=== PATIENT | male | born 1955 | race Caucasian/White ===

== ENCOUNTER 2023-03-30 07:30 | Day surgery (SDC) | payer OTHER ==
[2023-03-24 16:42] VITALS: BP 152/81
[~2023-03-30] VITALS: Ht 182.9 cm; Wt 113.6 kg
[~2023-03-30 07:30] MED LIST: ACYCLOVIR400 MG PO; ANASTROZOLE1 MG PO; CENTRUM SILVER1 EAC4 PO; CHROMIUM PICO400 MCG; DAILY MULTIPLE1 EACH PO; DEPLIN-ALGAL O1 EAC1 PO; DEPO-TESTO100 MG/1 M IM; DEXAMETHASONE4 MG PO; DHEA25 MG PO; FISH OIL 1,0001 EAC6 PO; IODINE STRONG100 ML PO; LORAZEPAM1 MG PO; LUNESTA3 MG PO; MAGNESIUM CITR100 GM; METFORMIN HCL500 M3 PO; MOLYBDENUM MISC; NORCO 7.5-3251 EACH PO; OXYCODON-ACETA1 EAC2 PO; SUPER B COMPLE150 MG PO; TART CHERRY E1000 MG PO; TURMERIC 450-51 EACH PO; VITAMIN A10000 UNIT PO; VITAMIN C1000 MG PO; VITAMIN D32000 UNIT PO; VITAMIN E400 UNIT PO; ZINC50 M1 PO; ZITHROMAX250 MG PO; ZOFRAN8 MG PO; [UNRECOGNIZED DRUG - OTHER] PO
[2023-03-30 07:59] VITALS: BP 146/82
[2023-03-30] MEDS ORDERED: PERCOCET 7.5-31 EACH PO (10:19)
[2023-03-30] MEDS ORDERED: TYLENOL EXTRA500 MG PO (10:20)
[2023-03-30] MEDS ORDERED: MOTRIN IB200 MG PO (10:20)
[2023-03-30 10:36] VITALS: BP 141/72
[2023-03-30 11:40] VITALS: BP 174/90
[2023-03-30 11:54] VITALS: BP 167/93
[2023-03-30 12:00] VITALS: BP 162/81
[2023-03-30 13:00] VITALS: BP 153/78
--- NOTE | 2023-03-30 14:14 | OR ---
[facility] [address] [place], [place] [address] Signed DATE OF OPERATION: 03/30/2023 SURGEON: Braxton Montiel MD PREOPERATIVE DIAGNOSIS: Incarcerated umbilical hernia. POSTOPERATIVE DIAGNOSES: Incarcerated umbilical hernia, fascial defect less than 2 cm, incarcerated properitoneal fat. PROCEDURES: 1. Excision of incarcerated properitoneal fat. 2. Repair of incarcerated umbilical hernia, fascial defect less than 2 cm without mesh. ANESTHESIA: General endotracheal, Caio Serafin, RAILROAD DETECTIVE and local 10 mL of 0.25% Marcaine with epinephrine. INDICATION: This 67-year-old white man is a patient of Dr. Pranav Raya as well as Dr. Still in [place]. He is noted to have a nonreducible hernia at the umbilicus. It has been present for a number of years, but only in recent times has become more uncomfortable and now is not reducible. The patient is known to me from the past having had a Port-A-Cath placement in 2019 for a mantle cell lymphoma. He has also undergone right orchiectomy in 2010 for malignancy. The patient has no evidence of disease currently of testicular carcinoma or lymphoma. He is here to undergo repair of incarcerated increasingly symptomatic umbilical hernia. The risk of bleeding, infection, recurrence and so forth were reviewed with him. He understands and wished to proceed. FINDINGS: Densely and incarcerated properitoneal fat was noted. It was chronically inflamed and firm and fibrous. It was ultimately excised. The fascial defect was certainly less than 2 cm. Closure primarily was undertaken as a primary repair mode as the fascia was wilson and strong. Mesh was not implanted. DESCRIPTION OF PROCEDURE: The patient was brought to the operating room, given a general endotracheal anesthetic. Preoperative antibiotic Ancef was given. Sequential compression device stockings were Electronically Signed By: BRAXTON MONTIEL MD 03/30/23 1414 PATIENT NAME: NAZARIO CUMMINS OPERATIVE REPORT DATE OF : 55 REPORT #: [id number] PHYSICIAN: BRAXTON MONTIEL MD PCP: MALIK STILL DO REPORT IS CONFIDENTIAL AND NOT TO BE RELEASED WITHOUT AUTHORIZATION [facility] [address] [place], [place] [address] Signed used and heparin subcutaneously administered. Palpation at the umbilicus even after relaxation showed no sign of reduction of the umbilical hernia. The abdomen was prepared with a chlorhexidine solution and draped sterilely. A curvilinear incision was made in the umbilical fold on the left side. Dissection carried through the dermis with electrocautery. Using blunt and electrocautery dissection, the incarcerated viscus was freed from the surrounding subcutaneous space. The umbilical skin over the hernia was freed similarly. The firm mass appeared not to be a hollow viscus but rather incarcerated properitoneal fat. It was not able to be reduced and therefore was excised completely. This included the hernia sac and the fatty tissue. The resulting defect was less than 2 cm. The fascia was wilson and strong. Implantation of mesh was deemed unlikely and probably . Therefore, primary repair of the defect was undertaken with interrupted 0 Prolene suture in a vertical mattress configuration. 10 mL of 0.25% Marcaine with epinephrine was injected locally. The wound was closed in layers with interrupted 2-0 Vicryl and a running subcuticular and 3-0 Vicryl for the skin. Steri-Strips were applied as was an Acticoat dressing. The patient tolerated the procedure well, was ultimately extubated and transferred to recovery room in good condition having suffered no complications. Sponge, needle, and instrument counts were reported as correct x3. MD VIGNESH Jordan/ALBINL /[id number] cc: DO Pranav Yoo MD Copies: MALIK STILL ROBERT C MD ~ Electronically Signed By: BRAXTON MONTIEL MD 03/30/23 1414 PATIENT NAME: NAZARIO CUMMINS OPERATIVE REPORT DATE OF : 55 REPORT #: [id number] PHYSICIAN: BRAXTON MONTIEL MD PCP: MALIK STILL DO REPORT IS CONFIDENTIAL AND NOT TO BE RELEASED WITHOUT AUTHORIZATION
--- NOTE | 2023-04-02 16:42 | PATH ---
[facility] [address] [place], [place] [address] Signed SPECIMEN(S): A PROPERITONEAL FAT SPECIMEN SOURCE: A. PROPERITONEAL FAT CLINICAL HISTORY: Properitoneal fat. Irreducible umbilical hernia. 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 - Focal fat necrosis. JR:theo MICROSCOPIC EXAMINATION: Histologic sections of all submitted blocks are examined by light microscopy. These findings, together with the gross examination, support the pathologic diagnosis. GROSS DESCRIPTION: The specimen, labeled and designated "[place], peritoneal fat," is received in formalin and consists of pink-scott, soft, smooth tissue fragment that measure 3.3 x 2.2 x 1.6 cm. The specimen weight 6 g. Specimen is inked. Sectioning through the specimen reveal regular adipose tissue. Hydropress Operator sections are submitted in (A1). JS (under the direct supervision of a pathologist) The Gross Description was prepared using a voice recognition system. The report was reviewed for accuracy; however, sound-alike word errors, addition and/or deletions may occur. If there is any question about this report, please contact Client Services. PERFORMING LABORATORY: Technical component was performed by [facility], [address] [place] [id number] (CLIA# [id number]). Professional interpretation was performed by [facility], [address] [place] [id number] (CLIA#: [id number]). Diagnostician: Jose Ruvalcaba MD Pathologist Electronically Signed 04/02/2023 PATIENT NAME: NAZARIO HOUSTON PATHOLOGY DATE OF : 55 REPORT #: [id number] PHYSICIAN: KEILA PATHOLOGY PCP: MALIK GROVE DO REPORT IS CONFIDENTIAL AND NOT TO BE RELEASED WITHOUT AUTHORIZATION [address] [address] Signed Copies: ~ PATIENT NAME: NAZARIO HOUSTON PATHOLOGY DATE OF : 55 REPORT #: [id number] PHYSICIAN: KEILA PATHOLOGY PCP: MALIK GROVE DO REPORT IS CONFIDENTIAL AND NOT TO BE RELEASED WITHOUT AUTHORIZATION
== END 2023-03-30 13:35 | disposition home or self-care (01) ==
LOC: DS 07:30
PROVIDERS: ATTEND Surgery
PROC: 0WQF0ZZ Repair Abdominal Wall, Open Approach (ICD-10-PCS; principal; 2023-03-30 09:00)
DX: K42.0 Umbilical hernia with obstruction, without gangrene (principal); E66.9 Obesity, unspecified; Z68.33 Body mass index [BMI] 33.0-33.9, adult
CPT/HCPCS: 00750; C1781; J0131; J0690; J1100; J1644; J1885; J2001; J2250; J2405; J2704; J3010; J3490; J7121

== ENCOUNTER 2023-04-22 06:48 | Day surgery (SDC) | payer OTHER ==
[~2023-04-22] VITALS: Ht 182.9 cm; Wt 113.6 kg
[~2023-04-22 06:48] MED LIST changes: +LACTATED RINGER'S 1,000 ML IV SCH; +MOTRIN IB200 MG PO; +PERCOCET 7.5-31 EACH PO; +TYLENOL EXTRA500 MG PO
[2023-04-22 06:58] VITALS: BP 165/79
[2023-04-22] MEDS ORDERED: IBLOOD GLUCOSE TEST STRIP 1 EA TEST VI PRN (07:00)
[2023-04-22] MEDS ORDERED: LIDOCAINE HCL 1% 5 ML SDV INJ ONE (07:00)
[2023-04-22] MEDS ORDERED: LIDOCAINE HCL 2% 5 ML SDV ONE (07:37)
[2023-04-22] MEDS ORDERED: propofoL 200 MG/20 ML VIAL ONE ×3 (07:37→08:28)
--- NOTE | 2023-04-22 09:04 | NUR ---
04/22/23 0904 Barbara Obrien 0841 PT ARRIVED ASLEEP AND RESP EVEN AND UNLABORED. 0848 PT WOKE TO TACTILE STIMULI AND DENIES CONCERNS. 0850 O2 REMOVED AND MD AT BEDSIDE TALKING TO PT. PT ROLLED TO BACK AND HOB INCREASED. PT SIPPING WATER AND DENIES CONCERNS.
[2023-04-22 09:26] VITALS: BP 140/81
--- NOTE | 2023-04-22 19:15 | OR ---
[facility] [address] [place], [place] [address] Signed DATE OF OPERATION: 04/22/2023 SURGEON: Braxton Montiel MD PREOPERATIVE DIAGNOSIS: History of multiple adenomatous polyps. POSTOPERATIVE DIAGNOSIS: Adenomatous polyps x9. PROCEDURE: Total colonoscopy to cecum with cold snare polypectomy x4 and cold morcellation polypectomy x5. ANESTHESIA: Intravenous sedation, propofol infusion, Shanna Morfin CRNA. INDICATION: This 67-year-old white man is a patient of Dr. Still in [place]. He has undergone colonoscopy in [place] in the past under my direction showing multiple polyps. He has a history of mantle cell lymphoma in remission since 2019 after chemotherapy. He is currently symptom free and having no bleeding diarrhea or constipation. Given his prior history of multiple polyps, colonoscopy has been recommended. He understands the risk of bleeding, infection, and perforation related to colonoscopy and wished to proceed. FINDINGS: The prep was good. Complete colonoscopy was undertaken of the cecum. There were nine polyps in aggregate, all of them small. None of the malignant-appearing. Four were excised with cold snare technique and five with cold morcellation technique. They were located in the right colon, hepatic flexure, transverse, left colon and rectosigmoid. DESCRIPTION OF PROCEDURE: The patient was brought to the surgical endoscopy suite and placed in the lateral decubitus position, given intravenous sedation with propofol infusional technique. Full cardiopulmonary monitoring was maintained. The anesthesia was administered by the ice cream maker. A digital rectal examination was normal. An Olympus video colonoscope was passed in the rectum and manipulated throughout the colon and ultimately intubating the cecum. There were two polyps noted in the proximal Electronically Signed By: BRAXTON MONTIEL MD 04/22/23 1915 PATIENT NAME: NAZARIO CUMMINS OPERATIVE REPORT DATE OF : 55 REPORT #: [id number] PHYSICIAN: BRAXTON MONTIEL MD PCP: MALIK STILL DO REPORT IS CONFIDENTIAL AND NOT TO BE RELEASED WITHOUT AUTHORIZATION [facility] [address] [place], [place] [address] Signed ascending colon, both excised with cold snare morcellation technique, another at the hepatic flexure similarly excised. The mid transverse colon was excised with cold snare technique. Further withdrawal showed two other polyps in the left colon, excised with cold snare technique and two others with cold morcellation technique and a remaining small polyp of the rectosigmoid excised with cold morcellation technique. An aggregate nine polyps were resected. The scope was removed and the patient was taken to the recovery room in good condition. CONCLUDING DIAGNOSIS: Nine polyps, all of them adenomatous most likely. PLAN: Recommend repeat colonoscopy in 1 to 2 years, sooner if symptoms should occur. He will return to the ongoing care of Dr. Still. MD VIGNESH Jordan/MAMIE /[id number] cc: Malik Still DO Copies: MALIK STILL DO ~ Electronically Signed By: BRAXTON MONTIEL MD 04/22/23 1915 PATIENT NAME: NAZARIO CUMMINS OPERATIVE REPORT DATE OF : 55 REPORT #: [id number] PHYSICIAN: BRAXTON MONTIEL MD PCP: MALIK STILL DO REPORT IS CONFIDENTIAL AND NOT TO BE RELEASED WITHOUT AUTHORIZATION
--- NOTE | 2023-04-30 15:17 | PATH ---
[facility] [address] [facility] [place], [place] [address] Signed SPECIMEN(S): A DESCENDING/LEFT COLON POLYPS SPECIMEN(S): B TRANSVERSE COLON POLYP SPECIMEN(S): C HEPATIC FLEXURE COLON POLYP SPECIMEN(S): D ASCENDING/RIGHT COLON POLYPS SPECIMEN(S): E RECTAL POLYP SPECIMEN SOURCE: A. DESCENDING/LEFT COLON POLYPS B. TRANSVERSE COLON POLYP C. HEPATIC FLEXURE COLON POLYP D. ASCENDING/RIGHT COLON POLYPS E. RECTAL POLYP CLINICAL HISTORY: Colonoscopy. History of colon polyps FINAL PATHOLOGIC DIAGNOSIS: A. Colon, descending/left, polypectomy: - Multiple fragments of tubular adenoma. - Additional fragments of colonic epithelium are within normal limits. B. Colon, transverse, polyp, biopsy: - Tubular adenoma. C. Colon, hepatic flexure, polypectomy: - Multiple fragments of tubular adenoma. D. Colon, ascending/right, polypectomy, biopsy: - Tubular adenoma, 1 fragment. - Hyperplastic polyp, 2 fragments. E. Rectum, polyp, biopsy: - Hyperplastic polyp, 1 fragment. - Additional fragments of rectal epithelium are within normal limits. COMMENT: There is no evidence of high grade dysplasia or malignancy. K MICROSCOPIC EXAMINATION: Histologic sections of all submitted blocks are examined by light microscopy. These findings, together with the gross examination, support the pathologic diagnosis. GROSS DESCRIPTION: PATIENT NAME: NAZARIO HOUSTON PATHOLOGY DATE OF : 55 REPORT #: [id number] PHYSICIAN: KEILA PATHOLOGY PCP: MALIK GROVE DO REPORT IS CONFIDENTIAL AND NOT TO BE RELEASED WITHOUT AUTHORIZATION [facility] [address] [place], [place] [address] Signed A. The specimen, labeled and designated "[place], descending colon erythema biopsy," is received in formalin and consists of six scott soft tissue fragments, ranging from 0.1-0.2 cm. Entirely submitted in (A1). B. The specimen, labeled and designated "[place], transverse colon polyps," is received in formalin and consists of one scott soft tissue fragment, 0.4 cm. Entirely submitted in (B1). C. The specimen, labeled and designated "[place], hepatic flexure polyp," is received in formalin and consists of three scott soft tissue fragments, ranging from 0.2-0.7 cm. The biggest tissue fragment is inked and bisected. in (C1). D. The specimen, labeled and designated "[place], ascending colon diverticula biopsy," is received in formalin and consists of three scott soft tissue fragments, ranging from 0.1-0.2 cm. Entirely submitted in (D1). E. The specimen, labeled and designated "[place], rectal polyp," is received in formalin and consists of three scott soft tissue fragments, ranging from 0.1-0.2 cm. Entirely submitted in (E1). JS (under the direct supervision of a pathologist) The Gross Description was prepared using a voice recognition system. The report was reviewed for accuracy; however, sound-alike word errors, addition and/or deletions may occur. If there is any question about this report, please contact Client Services. ADDITIONAL NOTES: Immunohistochemical and/or in situ hybridization studies if performed in this case included appropriate positive controls that reacted as expected. This test was developed and its performance characteristics determined by [facility]. It has not been cleared or approved by the U.S. Food and Drug Administration. The FDA has determined that such clearance or approval is not necessary. This test is used for clinical purposes. It should not be regarded as investigational or for research. [facility] is certified under the Clinical Laboratory Improvement Amendments of 1988 (CLIA) as qualified to perform high complexity clinical laboratory testing. PERFORMING LABORATORY: Technical component was performed by [facility], [address] [place] [id number] (CLIA# [id number]). Professional interpretation was performed by [facility] PATIENT NAME: NAZARIO HOUSTON PATHOLOGY DATE OF : 55 REPORT #: [id number] PHYSICIAN: KEILA PATHOLOGY PCP: MALIK GROVE DO REPORT IS CONFIDENTIAL AND NOT TO BE RELEASED WITHOUT AUTHORIZATION [facility] [address] [place], [place] [address] Signed [place] [address] [place] [address] (CLIA#:[id number]). Diagnostician: Tuan Feliciano MD Pathologist Electronically Signed 04/30/2023 Copies: ~ PATIENT NAME: NAZARIO HOUSTON PATHOLOGY DATE OF : 55 REPORT #: [id number] PHYSICIAN: KEILA BLUNT PCP: MALIK GROVE DO REPORT IS CONFIDENTIAL AND NOT TO BE RELEASED WITHOUT AUTHORIZATION
== END 2023-04-22 09:26 | disposition home or self-care (01) ==
LOC: OPS 06:48 → DS 06:48 → OPS 07:30 → DS 07:30 → OPS 09:26
PROVIDERS: ATTEND Surgery
PROC: 0DBL8ZX Excision of Transverse Colon, Via Natural or Artificial Opening Endoscopic, Diagnostic (ICD-10-PCS; 2023-04-22)
PROC: 0DBP8ZX Excision of Rectum, Via Natural or Artificial Opening Endoscopic, Diagnostic (ICD-10-PCS; 2023-04-22)
PROC: 0DBM8ZX Excision of Descending Colon, Via Natural or Artificial Opening Endoscopic, Diagnostic (ICD-10-PCS; 2023-04-22)
PROC: 0DBK8ZX Excision of Ascending Colon, Via Natural or Artificial Opening Endoscopic, Diagnostic (ICD-10-PCS; principal; 2023-04-22 07:30)
DX: Z12.11 Encounter for screening for malignant neoplasm of colon (principal); D12.2 Benign neoplasm of ascending colon; D12.4 Benign neoplasm of descending colon; D12.3 Benign neoplasm of transverse colon; K63.5 Polyp of colon; K62.1 Rectal polyp; Z86.010 Personal history of colon polyps; K42.0 Umbilical hernia with obstruction, without gangrene; C83.10 Mantle cell lymphoma, unspecified site; Z85.47 Personal history of malignant neoplasm of testis; E66.9 Obesity, unspecified; Z68.33 Body mass index [BMI] 33.0-33.9, adult; Z79.899 Other long term (current) drug therapy
CPT/HCPCS: 00811; J2001; J2704; J7121

== ENCOUNTER 2023-04-28 16:00 | Emergency (ER) | payer OTHER ==
[~2023-04-28] VITALS: Ht 182.9 cm; Wt 113.8 kg
[~2023-04-28 16:00] MED LIST changes: -LACTATED RINGER'S 1,000 ML IV SCH
--- OUTSIDE RECORDS SUMMARY | 2023-04-28 16:02 | XMS ---
PreManage Notification: NAZARIO CUMMINS Security Slurry Tank Tender Events No recent Security Events currently on file CRITERIA MET - [facility] CARE PROVIDERS There are no care providers on record at this time. Shelly has no Care Guidelines for this patient. Sita VISIT COUNT (12 MO.) 1 MADIHA Rock TOTAL 1 NOTE: Visits indicate total known visits. ED/C VISIT TRACKING (12 MO.) 04/28/2023 16:01 MADIHA Lundy [place] TYPE: Emergency COMPLAINT: - SHORTNESS OF BREATH INPATIENT VISIT TRACKING (12 MO.) No inpatient visits to display in this time frame [email or web address]
[2023-04-28 16:33] LABS: BASOPHILS 0.5 % (0-2); EOSINOPHILS 3.1 % (0-6); HEMATOCRIT 40.7 % (35.0-50.0); HEMOGLOBIN 13.7 g/dL (12.0-18.0); LYMPHOCYTES 22.2 % (24-44); MCH 36.1 (27-36); MCHC 33.8 g/dl (30-36); MONOCYTES 17.4 % (0-12); NEUTROPHILS 56.8 % (39-80); PLATELET COUNT 220 K/uL (140-440); RDW 13.5 (10.5-15.0)
[2023-04-28 16:47] LABS: ALBUMIN/GLOBULIN RATIO 1.54 (1.1-2.4); BILIRUBIN, TOTAL 0.9 ng/dL (0.2-1.0); BUN/CREATININE RATIO 14.28 (6.0-28.6); CALCIUM 8.5 mg/dL (8.5-10.1); CREATININE, SERUM 1.19 mg/dL (0.70-1.30); MAGNESIUM 2.1 mg/dL (1.8-2.4); PROTEIN, TOTAL 6.6 g/dL (6.4-8.2)
[2023-04-28] MEDS ORDERED: ELIQUIS5 MG PO (17:42)
[2023-04-28] MEDS ORDERED: K-TAB ER20 MEQ PO (17:42)
[2023-04-28] MEDS ORDERED: LASIX20 MG PO (17:42)
[2023-04-28] MEDS ORDERED: CARDIZEM CD120 MG PO (17:42)
[2023-04-28 19:05] VITALS: BP 145/92
--- NOTE | 2023-04-29 15:21 | EKG ---
[facility] [address] [facility] [place], [place] [address] Signed Atrial flutter with 2:[address] abnormality Abnormal ECG No previous ECGs available Confirmed by JOHNNIE CUMMINS MD ([id number]) on 04/29/2023 3:21:14 PM Electronically Signed By: JOHNNIE CMUMINS 04/29/23 1521 PATIENT NAME: NAZARIO CUMMINS Electrocardiogram DATE OF : 55 PHYSICIAN: JOHNNIE CUMMINS REPORT #: [id number] REPORT IS CONFIDENTIAL AND NOT TO BE RELEASED WITHOUT AUTHORIZATION
--- NOTE | 2023-04-29 15:21 | EKG ---
[facility] [address] [facility] [place] [address] Signed Atrial flutter with variable AV block Abnormal ECG When compared with ECG of 28-APR-2023 16:09, (Unconfirmed) Vent. rate has decreased BY [address] elevation has replaced ST depression in Inferior leads ST no longer depressed in Anterolateral leads Confirmed by JOHNNIE CUMMINS MD ([id number]) on 04/29/2023 3:21:46 PM Electronically Signed By: JOHNNIE CUMMINS 04/29/23 1521 PATIENT NAME: NAZARIO CUMMINS Electrocardiogram DATE OF : 55 PHYSICIAN: JOHNNIE CUMMINS REPORT #: [id number] REPORT IS CONFIDENTIAL AND NOT TO BE RELEASED WITHOUT AUTHORIZATION
== END 2023-04-28 19:05 | disposition home or self-care (01) ==
LOC: ED 16:00
PROVIDERS: Emergency Medicine
DX: I48.0 Paroxysmal atrial fibrillation (principal); I48.92 Unspecified atrial flutter; I50.9 Heart failure, unspecified; Z79.899 Other long term (current) drug therapy
CPT/HCPCS: 36415; 71045; 71260; 80053; 83735; 83880; 84484; 85025; 85379; 93005; 93010; Q9967

== ENCOUNTER 2023-06-09 18:01 | Inpatient (IN) | payer OTHER, MEDICARE ==
[~2023-06-09] VITALS: Ht 182.9 cm; Wt 120.5 kg
[~2023-06-09 18:01] MED LIST changes: +CARDIZEM CD120 MG PO; +ELIQUIS5 MG PO; +K-TAB ER20 MEQ PO; +LASIX20 MG PO
[2023-06-09 18:48] LABS: BASOPHILS 0.5 % (0-2); EOSINOPHILS 0.7 % (0-6); HEMATOCRIT 41.4 % (35.0-50.0); LYMPHOCYTES 27.5 % (24-44); MCH 35.5 (27-36); MCHC 33.7 g/dl (30-36); MCV 105.4 fl (81-99); MONOCYTES 20.7 % (0-12); NEUTROPHILS 50.6 % (39-80); PLATELET COUNT 221 K/uL (140-440); RBC 3.93 M/ul (4.3-5.7); RDW 13.5 (10.5-15.0)
[2023-06-09 18:56] LABS: ALBUMIN 4.2 g/dL (3.4-5.0); ALBUMIN/GLOBULIN RATIO 1.56 (1.1-2.4); BILIRUBIN, TOTAL 0.8 ng/dL (0.2-1.0); BUN/CREATININE RATIO 13.11 (6.0-28.6); CALCIUM 8.9 mg/dL (8.5-10.1); CREATININE, SERUM 1.22 mg/dL (0.70-1.30); MAGNESIUM 1.9 mg/dL (1.8-2.4); PROTEIN, TOTAL 6.9 g/dL (6.4-8.2)
--- NOTE | 2023-06-09 21:47 | EKG ---
[facility] [address] [place] [address] elevation, consider inferior injury or acute infarct , appearance related to rate Consider right ventricular involvement in acute inferior infarct Abnormal ECG When compared with ECG of 28-APR-2023 17:20, Sinus rhythm has replaced Atrial flutter Vent. rate has increased BY 59 BPM QRS duration has decreased T wave inversion more evident in Inferior leads Confirmed by Popeye Montero MD () on 06/09/2023 9:47:09 PM Electronically Signed By: POPEYE MONTERO MD 06/09/23 2147 PATIENT NAME: NAZARIO CUMMINS Electrocardiogram DATE OF : 55 PHYSICIAN: POPEYE MONTERO MD REPORT #: [id number] REPORT IS CONFIDENTIAL AND NOT TO BE RELEASED WITHOUT AUTHORIZATION
--- NOTE | 2023-06-09 21:48 | EKG ---
[facility] [address] [place] [facility] [place] [address] Signed Atrial flutter with variable AV block Abnormal ECG When compared with ECG of 09-JUN-2023 18:04, Atrial flutter has replaced Sinus rhythm Similar to previous EKG from 28-APR-2023 17:20 Confirmed by Popeye Montero MD () on 06/09/2023 9:48:24 PM Electronically Signed By: POPEYE MONTERO MD 06/09/23 2148 PATIENT NAME: NAZARIO CUMMINS Electrocardiogram DATE OF : 55 PHYSICIAN: POPEYE MONTERO MD REPORT #: [id number] REPORT IS CONFIDENTIAL AND NOT TO BE RELEASED WITHOUT AUTHORIZATION
[2023-06-09 22:04] VITALS: BP 156/92
--- NOTE | 2023-06-09 22:30 | NUR ---
PATIENT ARRIVED VIA STRETCHER, MOVED TO BED WITH ASSISTANCE FOR CORD MANAGEMENT. PATIENT AAOX4. DILTIAZEM DRIP 10 MG/HR. IV SITE WNL X2. HR 70-110. ADEQUATE BP. PATIENT DENIED FEELING SOB OR DIZZY WHEN MOVING TO THE BED. PATIENT DENIED GI UPSET OR SOB. DENIED PAIN. REQUESTED PRN ATIVAN AND MELATONIN WHICH HE TAKES AT HOME. PATIENT STOOD AT BEDSIDE TO VOID TO URNAL. URINE CONCENTRATED YELLOW COLOR. SKIN IS GROSSLY INTACT. PATIENT PROVIDED WARM BLANKETS. CALL LIGHT IN REACH. SANDWICH BOX AND WATER PROVIDED.
[2023-06-09 22:42] VITALS: BP 144/96
[2023-06-09 23:00] VITALS: BP 146/94
--- NOTE | 2023-06-09 23:26 | NUR ---
PATIENT STATES HE HAS TURNED HIS CPAP IN HE DOES NOT USE. DISCUSSED THAT HE COULD USE ONE OF OURS AND HE DECLINED AT THIS TIME. PLEASE CALL RT IF O2 IS REQUIRES OR ANY RT CONCERS.
[2023-06-09 23:30] VITALS: BP 147/85
[2023-06-10] VITALS (15 sets, daily range): BP systolic 114–152; BP diastolic 74–111
--- NOTE | 2023-06-10 00:05 | NUR ---
PATIENT'S HR 90-110. DILT DRIP 10 MG/HR. PATIENT PROVIDED HEAT PACK FOR NECK PAIN AND SORE MUSCLES. PATIENT AAOX4. VS STABLE. CALL LIGHT IN REACH.
--- NOTE | 2023-06-10 02:15 | NUR ---
PATIENT RESTING IN BED WATCHING VIDEOS ON HIS PHONE. PATIENT DENIED NEEDS, REPORTS HE REGULARLY DOES NOT SLEEP DUE TO HIS INSOMNIA. VS STABLE. IV SITE WNL, X2. DILT DRIP CONTINUES AT 10 MG/HR.
--- NOTE | 2023-06-10 04:45 | NUR ---
NEW BAG IV CARDIZEM STARTED. PATIENT HAS BEEN RATE CONTROLED AT 10 MG/HR WITH HR 100-110. PATIENT DISCUSSING PLAN TO FOLLOW UP WITH PCP AND POSSIBLY WANTS TO QUIT DRINKING WELL. PATIENT AWARE OF LOCAL RESOURCES AND PLANS TO DISCUSSE WITH HIS PCP WELL.
[2023-06-10 05:30] LABS: BASOPHILS 0.7 % (0-2); EOSINOPHILS 2.1 % (0-6); HEMATOCRIT 38.1 % (35.0-50.0); HEMOGLOBIN 12.9 g/dL (12.0-18.0); MCH 35.4 (27-36); MCHC 33.8 g/dl (30-36); MCV 104.8 fl (81-99); MONOCYTES 24.2 % (0-12); PLATELET COUNT 209 K/uL (140-440); RBC 3.63 M/ul (4.3-5.7); RDW 14.1 (10.5-15.0)
[2023-06-10 05:45] LABS: ALBUMIN 3.5 g/dL (3.4-5.0); ALBUMIN/GLOBULIN RATIO 1.4 (1.1-2.4); ANION GAP 16.7 (7-21); BILIRUBIN, TOTAL 1.1 ng/dL (0.2-1.0); BUN/CREATININE RATIO 14.54 (6.0-28.6); CALCIUM 8.5 mg/dL (8.5-10.1); CREATININE, SERUM 1.1 mg/dL (0.70-1.30); PHOSPHORUS, INORGANIC 3.1 mg/dL (2.5-4.9); POTASSIUM 3.7 mmol/L (3.5-5.1)
--- NOTE | 2023-06-10 07:30 | NUR ---
REPORT RECIEVED FROM FOUNDRY METALLURGIST RN. PATIENT RESTING IN BED ON CARDIZEM GTT AT THIS TIME AT 10MLS/HR. PATIENT ALERT AND CALLS APPROPRIATELY. CALL LIGHT IN REACH.
--- NOTE | 2023-06-10 08:30 | NUR ---
THIS RN IN TO SEE PATIENT. REVIEWED PLAN OF CARE WITH PATIENT. ECHO WILL BE IN AT 0900. PATIENT WILL TRANSITION TO PO CARDIZEM AND MONITOR RATE CONTROL THIS AFTERNOON FOR POTENTIAL DC HOME. WILL STOP GTT AFTER PO GIVEN.
--- NOTE | 2023-06-10 10:10 | NUR ---
Spoke with pt and he states he lives in [place] in a home with 6 steps. He denies issues getting in or out of his home. 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 He does not use any DME. He states his pcp, Dr. Still referred him to cardiology, but he has not received a call. Pt plans on dc today to his home. He will call his friend Lacey for a ride. I will call and schedule a pcp fu and check about the cardiology appt.
--- NOTE | 2023-06-10 10:10 | NUR ---
KARIME RN IN TO GIVE PO MEDICATION WILL TITRATE OFF GTT IN 1 HOUR PER ORDERS.
--- NOTE | 2023-06-10 11:00 | NUR ---
CARDIZEM GTT STOPPED AT THIS TIME. PATIENT SITTING UP IN BED RESTING AND DENIES ANY OTHER NEEDS AT THIS TIME.
--- NOTE | 2023-06-10 11:53 | NUR ---
Called and spoke with Hellen from Dr Still's office. I scheduled an appt for 06/17/23 at 2 pm. Hellen also was able to check for a referral. Pt had requested to see cardiology in [place]. We do not currently have cardiology. I gave her [facility]'s phone number for Dr. Solorzano as he was the vp research here in the past. I will update the pt.
--- NOTE | 2023-06-10 12:03 | NUR ---
CALL TO DR MONTERO TO UPDATE - PT AT REST, EATING LUNCH, DENIES NEEDS, HR 120'S. AWARE OF VITALS. CALL LIGHT IN REACH.
--- NOTE | 2023-06-10 12:10 | NUR ---
Pt and nurses update to upcoming appt.
--- NOTE | 2023-06-10 12:54 | NUR ---
DR CUMMINS HERE FOR UPDATE ON PT.
--- NOTE | 2023-06-10 13:42 | NUR ---
PT AND THIS RN DISCUSSED DT SYMPTOMS, AND OFFER TO HAVE A DRINK OR TO STOP DRINKING. PT WOULD LIKE TO DISCUSS WITH DR OPTION TO STOP DRINKING FOR GOOD. ATIVAN 1 MG IV AND DILTIZEM PRN.
--- NOTE | 2023-06-10 13:55 | NUR ---
call to cell phone, rickey answered, rn informed dr that pt has dt symptoms rn discussed with pt option to continue to drink here and in future or to stop as pt reports last drink was 2 days ago, pt would like to know more about quiting and the symptoms that may occur, currently the pt has a headache, skin red and flushed, and pt shakes when he holds hands out. hr is tachicardic and pt looks anxious. pt agrees he would like medical help to ease the symptoms and help him recover from his etoch addiction - ativan and cardizem were given earlier and hr is now 93. aware.
--- NOTE | 2023-06-10 14:58 | NUR ---
PT IN ROOM WITH RN AND DR CUMMINS,
--- NOTE | 2023-06-10 15:00 | NUR ---
DR CUMMINS AND PT IN ROOM WITH PT TO TALK ABOUT AFIB AND ETOH, MAKING A PLAN TO ASSIST PT WITH RECOVERY. CIWA PROTOCOL. HR 76, 96% ROOM AIR, BP 152/86
--- NOTE | 2023-06-10 15:31 | NUR ---
UR NOTE [facility] ATRIAL FIBRILLATION: OBSERVATION CARE (ISC) 06/09/23 MET OBSERVATION CARE ADMISSION CRITERIA [facility] ATRIAL FIBRILLATION (ISC) INPATIENT 06/10/23 MET CLINICAL INDICATIONS FOR ADMISSION TO INPATIENT CARE GL DAY 1
--- NOTE | 2023-06-10 17:08 | NUR ---
Spoke with Nargis and gave him a printout with time and place for AA meetings. There was an 800 number also included on the page. I gave him a JOHNATHAN card and I also encouraged him to call his Insurance through [employer] as they contract with and A&D program. Pt denies further needs and is eating dinner. Will fu with him tomorrow before he leaves.
--- NOTE | 2023-06-10 18:33 | NUR ---
PATIENT PO ATIVAN GIVEN AT THIS TIME WITH CIWA OF 8. PATIENT NOTED SOME ANXIETY, HEADACHE, INCREASED HR, INCREASED BP. PATIENT ALSO HAS MILD TREMORS. PATIENT DENIES ANY OTHER NEEDS AT THIS TIME.
--- NOTE | 2023-06-10 19:30 | NUR ---
REPORT RECEIVED FROM KARIME AGUIRRE. PT IS AWAKE, WATCHING TV IN BED WITH SPO2 94%, RR 22, HR 100'S AND O2 AT 4L/NC.
--- NOTE | 2023-06-10 20:00 | NUR ---
PATIENT UP TO THE BATHROOM TO ATTEMPT TO HAVE A BM. PATIENT UNABLE TO HAVE BM BUT VOIDED. HR UP TO 135; WITH ACTIVTY AND PATIENT SLIGHTLY SOB. PATIENT RETURNED TO BED AND HR IMPROVED TO 80'S. PATIENT RECOVERED QUICKLY. LUNG SOUNDS ARE CLEAR. NO NAUSEA. IV SITE FLUSHED; WNL X2. VS STABLE. PATIENT PRIENTED X4; SLIGHTLY ANXIOUS. PATIENT READY TO SLEEP NOW, SLEEP AID MEDS GIVEN. BED ALARM ON. CALL LIGHT IN REACH.
--- NOTE | 2023-06-10 20:22 | NUR ---
IN TO DO ASSESSMENT, WHEN ASKED IF PT IS HAVING PAIN HE STATES "ONLY MY STOMACH". PT DENIES FEELING SHORT OF BREATH, LUNGS HAVE FEW COARSE SOUNDS IN BASES AND CLEAR IN THE REST. LEGS HAVE TRACE AMOUNTS OF EDEMA. ORAL TEMP IS 100.4, WILL NOTIFIY .
--- NOTE | 2023-06-10 22:00 | NUR ---
PATIENT REQUESTED ATIVAN DUE TO ELEAVTED CIWA AND NOT YET BEING ABLE TO SLEEP WITH SLEEP AIDS. PATIENT CIWA 10. SHIRA AGUIRRE PROVIDED MEDS PER ORDER.
--- NOTE | 2023-06-10 23:15 | NUR ---
PATIENT SNORING. EYES CLOSED. VS STABLE. ALLOWED PATIENT TO REST. CALL LIGHT IN REACH. BED ALARM ACTIVE.
[2023-06-11] VITALS: BP 117/75
[2023-06-11 01:00] VITALS: BP 110/77
[2023-06-11 02:00] VITALS: BP 130/87
[2023-06-11 04:00] VITALS: BP 144/101
--- NOTE | 2023-06-11 06:00 | NUR ---
patient has a visitor that contreras him food. patient in good spirits and resting in bed. HR 100-120 with even mild activity. no shortness of breath.
--- NOTE | 2023-06-11 07:30 | NUR ---
report recieved from child and adolescent psychiatrist rn. patient resting in bed on his left side at this time. patient has call light and calls appropriately. vitals stable.
--- NOTE | 2023-06-11 07:37 | NUR ---
UPDATE GIVEN TO
--- NOTE | 2023-06-11 08:30 | NUR ---
PATIENT UP SITTING IN BED. PATIENT HAD BREKFAST DELIVED EARLY THIS AM AND ATE ALL HIS FOOD. PATIENT DENIES HOSPITAL BREAKFAST. PATIENT HR 100-110 AT THIS TIME. AM MEDICATIONS GIVEN. PATIENT EDUCATED ON PLAN OF CARE. NO OTHER QUESTIONS AT THIS TIME.
[2023-06-11 08:41] VITALS: BP 151/96
[2023-06-11] MEDS ORDERED: ELIQUIS5 MG PO (10:10)
[2023-06-11] MEDS ORDERED: CHLORDIAZEPOXIDE5 MG PO (10:11)
[2023-06-11] MEDS ORDERED: CARDIZEM CD240 MG PO (10:13)
--- NOTE | 2023-06-11 10:45 | NUR ---
PATIENT VISITING WITH [facility]. PATIENT DENIES ANY ISSUES AT THIS TIME.
--- NOTE | 2023-06-11 11:05 | NUR ---
ROUNDS. PT EXHIBITED STRONG TALYA RESOURCES. PROVIDED VINYL INSTALLER EDUCATION; FACILITATED DISCUSSION OF TALYA PRACTICES; LISTENED EMPATHETICALLY; PROVIDED PRAYER; FACILITATED LIFE REVIEW. PT EXPRESSED GRATITUDE.
--- NOTE | 2023-06-11 11:19 | NUR ---
PATIENT UP AND WALKED WITH [facility] AND AROUND TO MS UNIT. PATIENT TOLERATED WELL AND DENIES SOB. PATIENTS HIGHEST HR NOTED WAS 105 BUT MOSTLY 98.
[2023-06-11 11:36] VITALS: BP 151/83
--- NOTE | 2023-06-11 11:50 | NUR ---
PATIENT DRESSED AND REVIEWED PLAN OF CARE WITH PATIENT. ALL QUESTIONS ANSWERED. PATIENT ASSISTED TO WHEELCHAIR AND TRANSFERED OUT OF UNIT WITH DEIDRA AGUIRRE.
== END 2023-06-11 11:56 | disposition home or self-care (01) | DRG 310 ==
LOC: ED 18:01 → CCU 18:03
PROVIDERS: Emergency Medicine; ADMIT Family Medicine; ATTEND Family Medicine
DX: I48.0 Paroxysmal atrial fibrillation (principal); I48.92 Unspecified atrial flutter; I10 Essential (primary) hypertension; R79.89 Other specified abnormal findings of blood chemistry; F10.90 Alcohol use, unspecified, uncomplicated; M19.90 Unspecified osteoarthritis, unspecified site; Z85.47 Personal history of malignant neoplasm of testis; Z98.890 Other specified postprocedural states; Z90.89 Acquired absence of other organs; Z79.899 Other long term (current) drug therapy; Z79.01 Long term (current) use of anticoagulants; Z79.84 Long term (current) use of oral hypoglycemic drugs
CPT/HCPCS: 36415; 71045; 80053; 83735; 83880; 84100; 84484; 85025; 93005; 93010; 93306; 96365; 96366; 96375; 96376; 99285-25; A9270-GY; G0378; G0480; J2060; J3411; J3490; J7030; Q9957

== ENCOUNTER 2023-10-25 12:44 | Emergency (ER) | payer OTHER ==
[~2023-10-25] VITALS: Ht 182.9 cm; Wt 119.2 kg
[~2023-10-25 12:44] MED LIST changes: +CARDIZEM CD240 MG PO; +CHLORDIAZEPOXIDE5 MG PO
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
[2023-10-25] MEDS ORDERED: FUROSEMIDE20 MG PO (16:03)
[2023-10-25 16:31] VITALS: BP 148/91
== END 2023-10-25 16:32 | disposition home or self-care (01) ==
LOC: ED 12:44
DX: Z04.1 Encounter for examination and observation following transport accident (principal); V73.5XXA Driver of bus injured in collision with car, pick-up truck or van in traffic accident, initial encounter; Z79.899 Other long term (current) drug therapy
CPT/HCPCS: 99282